=== PATIENT | female | born 1995 | race Caucasian/White ===

== ENCOUNTER 2023-07-31 21:55 | Emergency (ER) | payer OTHER, SELFPAY ==
[2023-07-31 21:59] VITALS: BP 109/55
--- NOTE | 2023-07-31 22:10 | ED.GENMED ---
History of Present Illness
<CHEN Mascorro - Last Filed: 08/01/23 01:41>
General
Chief Complaint: Allergic Reaction
Source: patient
Exam Limitations: none
Time Seen by Provider: 07/31/23 22:04
Nursing documentation reviewed up to this point in time: agreed with
Travel History
Have you had any contact with someone who has COVID-19?: No
Do you have any symptoms of coronavirus? Fever > 100 degrees, chills, cough, shortness of breath, sore throat, loss of taste or smell, muscle aches, or headache?: No
History of Present Illness
History of Present Illness:
This is a 28 year old female with no significant past medical history who presents to the ED with concerns of an allergic reaction x2 hours. Patient was drinking wine when she started to break out in hives associated with facial swelling and itchy
eyes. She also reports palpitations at this time have been persistent. Shortly following these symptoms, she began to feel nauseous and had 1 episode of vomiting. She reports taking Zyrtec that has not provided any relief. She admits 2 prior
experiences where she broke out in hives with facial swelling after alcohol consumption. The first incident was 1 year ago and she took Benadryl that provided relief. The second incident was 2 weeks ago and she took Zyrtec. She denies trouble
breathing or swallowing, SOB, CP, diarrhea, blurry vision, or headache. She is currently nursing.
Review of Systems
<CHEN Mascorro - Last Filed: 08/01/23 01:41>
Review of Systems
Allergies reviewed?: Yes
All Other Systems: Not applicable
Constitutional: Reports no symptoms
EENT: Reports other (Eye irritation and swelling)
Respiratory: Reports no symptoms
Cardiac: Reports palpitations
ABD/GI: Reports nausea and vomiting
: Reports no symptoms
Musculoskeletal: Reports no symptoms
Skin: Reports rash (Hives)
Neurological: Reports no symptoms
Endocrine: Reports no symptoms
Hematologic/Lymphatic: Reports no symptoms
Psychiatric: Reports no symptoms
Phy Exam
<CHEN Mascorro - Last Filed: 08/01/23 01:41>
General Physical Exam
General Presentation: well appearing and mild distress
General Skin: warm, dry and flushed
General Habitus: normal
General Mental: alert
General Hydration: appears well hydrated
ENT Exam
ENT Exam: EOMI, pharynx normal, neck supple and normocephalic
Eye Exam
Eye Exam: PERRL, cornea clear and other (b/l chemosis )
Conjunctival Changes: bilateral: chemosis
Cardiovascular Exam
Cardiovascular Exam: no edema, no murmur, normal peripheral pulses and tachycardia
Pulmonary Exam
Pulmonary Exam: lungs clear, no respiratory distress, no rales, no crackles, no rhonchi, no stridor, no wheezing and no cough
Gastrointestinal Exam
Gastrointestinal Exam: normal bowel sounds, non tender, soft, no organomegaly, no pulsatile mass and non distended
Neurological Exam
Neurological Exam: alert, oriented x3, no motor deficits and speech normal
Musculoskeletal Exam
Musculoskeletal Exam: full ROM and no edema
Skin Exam
Skin Exam: normal color, warm/dry, no petechia and other (Urticaria - Face and neck, b/l upper and lower extremities, chest and trunk)
Psychiatric Exam
Psychiatric Exam: normal mood/affect
Course
<CHEN Mascorro - Last Filed: 08/01/23 01:41>
Orders/Labs/Results
Orders:
Orders
07/31/23 22:04
Dexamethasone Sod Phosphate [Decadron] 20 mg .ROUTE .STK-MED ONE
Diphenhydramine [Benadryl] 50 mg .ROUTE .STK-MED ONE
EPINEPHrine PF [Adrenalin] 1 mg .ROUTE .STK-MED ONE
Famotidine [Pepcid] 20 mg .ROUTE .STK-MED ONE
07/31/23 22:13
Dexamethasone Sod Phosphate [Decadron] 10 mg IV NOW STA
Diphenhydramine [Benadryl] 50 mg IV NOW STA
Famotidine [Pepcid] 20 mg IV NOW STA
07/31/23 22:15
EPINEPHrine PF [Adrenalin] 0.3 mg IM NOW STA
07/31/23 22:21
Ondansetron Injectable [Zofran] 4 mg .ROUTE .STK-MED ONE
07/31/23 22:23
Ondansetron Injectable [Zofran] 4 mg IV NOW STA
Vital Signs
Initial and Last Documented VS:
Initial Vital Signs
Temp Pulse Resp BP Pulse Ox
97.1 F 119 20 109/55 96
07/31/23 21:59 07/31/23 21:59 07/31/23 21:59 07/31/23 21:59 07/31/23 21:59
Last Documented Vital Signs
Temp Pulse Resp BP Pulse Ox
97.1 F 92 23 98/59 95
07/31/23 21:59 08/01/23 01:00 08/01/23 01:00 08/01/23 01:00 08/01/23 01:00
<Maria De Jesus Mendenhall DO - Last Filed: 08/01/23 01:21>
Orders/Labs/Results
Orders:
Orders
07/31/23 22:04
Dexamethasone Sod Phosphate [Decadron] 20 mg .ROUTE .STK-MED ONE
Diphenhydramine [Benadryl] 50 mg .ROUTE .STK-MED ONE
EPINEPHrine PF [Adrenalin] 1 mg .ROUTE .STK-MED ONE
Famotidine [Pepcid] 20 mg .ROUTE .STK-MED ONE
07/31/23 22:13
Dexamethasone Sod Phosphate [Decadron] 10 mg IV NOW STA
Diphenhydramine [Benadryl] 50 mg IV NOW STA
Famotidine [Pepcid] 20 mg IV NOW STA
07/31/23 22:15
EPINEPHrine PF [Adrenalin] 0.3 mg IM NOW STA
07/31/23 22:21
Ondansetron Injectable [Zofran] 4 mg .ROUTE .STK-MED ONE
07/31/23 22:23
Ondansetron Injectable [Zofran] 4 mg IV NOW STA
Vital Signs
Initial and Last Documented VS:
Initial Vital Signs
Temp Pulse Resp BP Pulse Ox
97.1 F 119 20 109/55 96
07/31/23 21:59 07/31/23 21:59 07/31/23 21:59 07/31/23 21:59 07/31/23 21:59
Last Documented Vital Signs
Temp Pulse Resp BP Pulse Ox
97.1 F 92 23 98/59 95
07/31/23 21:59 08/01/23 01:00 08/01/23 01:00 08/01/23 01:00 08/01/23 01:00
<CHEN Mascorro - Last Filed: 08/01/23 01:41>
MDM/Problems Addressed
Differential Diagnosis Includes:
Allergic reaction vs anaphylaxis
Anaphylaxis was considered, however she not have bronchospasm, hypotension or upper airway obstruction making it less likely. I suspect this is an allergic reaction to alcohol consumption.
<Maria De Jesus Mendenhall DO - Last Filed: 08/01/23 01:21>
*Pulse Oximetry
Patient hypoxic: no
*Vending Stand Supervisor Interpretation
Rate: normal
Interpretation: normal
Rhythm: sinus
*Critical Care Note
Total Time (30-74mins, 75-104mins- exclusive of procedures): Not Applicable
ED Attending Note
<Lynda Kyle, STPA - Last Filed: 08/01/23 01:41>
-
Portions of this chart may have been created with voice recognition software.� Occasional wrong word or��sound alike� substitutions may have occurred due to the inherent limitations of voice recognition software.
<Maria De Jesus Mendenhall DO - Last Filed: 08/01/23 01:21>
ED Attending Note
Patient seen and examined by attending physician: Yes
I performed the substantive portion of visit, reviewed & personally made and approve the management plan that is documented in note by myself or CODY.: Yes
I performed a history and physical exam of patient and discussed management with resident, I reviewed resident's note and agree with documented findings and plan of care.: Yes
ED Attending Note:
This is a 28-year-old female with no significant past medical history. Nursing 5-month-old twins at home.
She presents with acute allergic reaction, generalized hives, itching, itchy swollen eyes, nausea and vomiting that began abruptly around 8:30 PM after consuming a few sips of wine. She had similar allergic reaction after consuming a vodka drink 2
weeks ago as well as similar but milder reaction after consuming alcohol a year ago. She admits to rarely consuming alcohol.
Tonight's reaction is much more severe compared to 2 weeks ago and 1 year ago. She took Zyrtec tonight around 8:30 PM, thus far no improvement.
2 weeks ago after taking Benadryl symptoms resolved after a few hours.
She denies coughing or shortness of breath, no abdominal pain nor diarrhea.
She takes no medicines on a daily basis and no recent antibiotic use. No fever no chills.
GENERAL: 28-year-old female appears her stated age, awake and alert, appears in mild distress. Female friend accompanying.
EYE: pupils equal and reactive. anicteric. There is moderate conjunctival injection bilaterally with mild global chemosis bilaterally. Mild urticarial bilateral lid and periorbital edema.
NECK: Supple, nontender, no meningismus, no significant adenopathy.
ENT: posterior pharynx is clear, oral mucosa is moist. TM clear b/l, nares patent. No angioedema.
CARDIAC: Regular rate and rhythm. no murmur.
LUNGS: Clear breath sounds bilaterally, no acute respiratory distress, no wheezes/rales/rhonchi
ABDOMEN: Soft, nondistended, without focal tenderness, no r/g, normoactive BS.
NEUROLOGICAL: Alert and oriented x3, no focal neuro deficits. Gait is solorio and steady.
SKIN: Warm and dry, global erythema along with scattered hives to extremities and trunk.
MUSCULOSKELETAL: No C/C/E. peripheral pulses are full and equal b/l. No palpable tenderness.
PSYCH: Normal and appropriate interaction.
Patient presents with acute generalized allergic reaction, anaphylactoid reaction presumptively related to wine consumption.
Will treat with IV Benadryl, Pepcid, Decadron, IV fluids and will give IM dose of epinephrine.
No respiratory compromise and remained hemodynamically stable.
Will continue to observe closely.
Going forward, recommend complete cessation of any alcoholic beverages. Would recommend follow-up with document management specialist and will plan to prescribe EpiPen.
08/01/2023 0120 AM
Patient feeling markedly improved with complete resolution of erythema and hives. Marked improvement in periorbital swelling and no further chemosis nor conjunctival injection.
Will discharge to home with a short course of prednisone, recommend continuing daily Zyrtec over the next 7 days and a prescription for EpiPen has been provided as well.
Recommend further evaluation with multiple coil winder and to avoid any further alcoholic beverages.
Discharge Plan
Departure
Patient Disposition: Home (Routine Discharge)
Date of Disposition: 08/01/23
Time of Disposition: 01:14
Patient with high blood pressure during this ER visit?: No
Condition: Good
Discharge Problem:
Acute allergic reaction, Anaphylactoid reaction
Instructions: Anaphylaxis (DC), Allergic Reaction ED
Prescriptions:
New
prednisone 20 mg tablet
40 mg PO DAILY Qty: 10 0RF
epinephrine [EpiPen 2-Mathew] 0.3 mg/0.3 mL auto-injector
0.3 mg IM ONCE PRN (Reason: anaphylaxis) Qty: 2 0RF
No Action
Vitamin Tablet
1 tab PO DAILY
oxycodone-acetaminophen 5 MG/325 MG tablet
1 tab PO Q4HPRN PRN (Reason: moderate pain) Qty: 12 0RF
ibuprofen 600 MG tablet
600 mg PO Q4HPRN PRN (Reason: cramps) 0RF
Referrals:
Consuelo Cook MD [Active] - Call in 1-3 days for appt
NONE,* [Family Provider] -
Activity Restrictions/Additional Instructions:
Continue Zyrtec once daily over the next week.
Avoid any further alcohol beverages.
If acute allergic reaction occurs in the future recommend prompt use of EpiPen as well as taking 2 [id number] Benadryl.
Interventions
Interventions:
*Risk Screen - Suicide Last Done: 07/31/23 21:59
*General Assessment Last Done: 07/31/23 21:59
*Neglect/Abuse Screening Last Done: 07/31/23 21:59
*Nursing Disposition Last Done: 08/01/23 01:16
ED- Cardiac Assessment Last Done: 07/31/23 22:43
ED- Pulmonary Assessment Last Done: 07/31/23 22:43
ED-Skin Assessment Last Done: 07/31/23 22:43
Discharge Date and Time
Print Language: PORTUGUESE
[2023-07-31] MEDS: DECADRON 10 MG IV (22:14)
[2023-07-31] MEDS: PEPCID 20 MG IV (22:15)
[2023-07-31] MEDS: BENADRYL 50 MG IV (22:15)
[2023-07-31] MEDS: ADRENALIN 0.299999999999999989 MG IM (22:22)
[2023-07-31] MEDS: ZOFRAN 4 MG IV (22:24)
[2023-07-31 22:38] VITALS: BP 109/55
[2023-07-31 23:00] VITALS: BP 104/60
[2023-08-01] VITALS: BP 105/54
[2023-08-01 01:00] VITALS: BP 98/59
== END 2023-08-01 01:16 | disposition home or self-care (01) ==
LOC: EMR 21:55
PROVIDERS: EMERGENCY PHYSICIAN Emergency Medicine
DX: T78.40XA Allergy, unspecified, initial encounter (principal)
CPT/HCPCS: 99284; 96374; 96375 ×2; 96372